=== PATIENT | male | born 1985 | race Asian ===

== ENCOUNTER 2021-10-22 17:49 | Emergency (ER) | payer OTHER ==
[~2021-10-22] VITALS: Ht 175.3 cm; Wt 90.9 kg
[2021-10-23] MEDS ORDERED: TETANUS-DIPTH-ACEL PERTUSSIS 0.5ML SYR Tdap IM ONE (02:00)
[2021-10-23] MEDS ORDERED: AMOX500T86 PO (02:01)
[2021-10-23 02:17] VITALS: BP 124/76
== END 2021-10-23 02:23 | disposition home or self-care (01) ==
LOC: EDSEX 17:49 → ER 17:49
DX: S61.531A Puncture wound without foreign body of right wrist, initial encounter (principal); S61.551A Open bite of right wrist, initial encounter; W54.0XXA Bitten by dog, initial encounter; Y92.89 Other specified places as the place of occurrence of the external cause; Y93.89 Activity, other specified; Y99.8 Other external cause status
CPT/HCPCS: 90471; 90715

== ENCOUNTER 2023-08-13 20:09 | Emergency (ER) | payer OTHER ==
[~2023-08-13] VITALS: Ht 177.8 cm; Wt 93.0 kg
[~2023-08-13 20:09] MED LIST: AMOX500T86 PO
[2023-08-13 20:45] VITALS: PULSE 80; RESP 21; O2SAT 96
[2023-08-13] MEDS: EPINEPHrine HCL 1 MG/1 ML AMP IM ONE (21:14)
[2023-08-13] MEDS: FAMOTIDINE (10MG/ML) 2ML VL IV ONE (21:16)
[2023-08-13] MEDS: diphenhdrAMINE HCL 50 MG/1 ML VL IV ONE (21:17)
[2023-08-13] MEDS: DexAMETHasone SOD PHOS 10MG/1ML VIAL INJ IV ONE (21:17)
[2023-08-13 22:00] VITALS: BP 109/68; PULSE 111; RESP 21; O2SAT 95
[2023-08-13] MEDS ORDERED: EPIN0.1I11 IJ (23:01)
== END 2023-08-13 23:17 | disposition home or self-care (01) ==
LOC: EDBD 20:09 → ER 20:09
DX: T78.2XXA Anaphylactic shock, unspecified, initial encounter (principal); F31.9 Bipolar disorder, unspecified; Y92.89 Other specified places as the place of occurrence of the external cause
CPT/HCPCS: 96372; 96374; 96375; 99291; J0171; J1100; J1200; J3490